=== PATIENT | female | born 1960 | race Caucasian/White ===

== ENCOUNTER → 2022-07-05 | Outpatient (CLI) | payer BC ==
[~2022-07-05] MED LIST: CIPR500T5 PO; CIPR500T78 PO; CPR500T PO; DCS100C PO; ESTR0.5T PO; ESTR1TAB24 PO; ESTROGEN; HYDR-757 PO; METR-145 PO; METR500T PO
--- NOTE | 2022-07-05 16:48 | Diagnostic Imaging Report ---
Indication: Routine screening. Comparison is made with prior mammograms 07/04/2021 and 05/31/2020. 2-D and 3-D bilateral screening mammography was performed with CAD. Both breasts are heterogeneously dense, limiting the sensitivity of mammography. The parenchymal pattern is stable. No mass or malignant-appearing microcalcifications are seen. Axillae are unremarkable. IMPRESSION: BI-RADS Category 1 No mammographic features suspicious for malignancy are identified. ACR BI-RADS Category 1: Negative. Result letter will be mailed to the patient. Note: At least 10% of breast cancer is not imaged by mammography. Dictated by: Dictated on workstation # [id number]
== END ==
LOC: RAD 14:45
PROVIDERS: ATTEND Family Medicine
DX: Z12.31 Encounter for screening mammogram for malignant neoplasm of breast (principal)
CPT/HCPCS: 77063; 77067

== ENCOUNTER 2022-07-31 06:36 | Outpatient (CLI) | payer BC ==
[~2022-07-31] VITALS: Ht 170.2 cm; Wt 71.2 kg
[2022-08-02] MEDS ORDERED: ONDA4TAB11 SL (10:36)
[2022-08-02] MEDS ORDERED: ESTR1TAB24 PO (10:36)
== END 2022-08-02 10:41 | disposition home or self-care (01) ==
LOC: PREOP 06:36
PROVIDERS: ATTEND Surgery
DX: Z01.818 Encounter for other preprocedural examination (principal)

== ENCOUNTER 2022-08-07 11:11 | Day surgery (SDC) | payer BC ==
[~2022-08-07] VITALS: Ht 170.2 cm; Wt 71.2 kg
[~2022-08-07 11:11] MED LIST changes: +ONDA4TAB11 SL
[2022-08-07] MEDS ORDERED: LACTATED RINGERS 1,000 ML IV STA (11:13)
[2022-08-07 11:40] VITALS: BP 114/65
--- NOTE | 2022-08-07 11:49 | Progress Note-Pre Operative ---
Pre-Operative Progress Note Date of Available H&P: Jul 25, 2022 Date H&P Reviewed: Aug 07, 2022 Time H&P Reviewed: 11:49 History & Physical: H&P Reviewed, Patient Examed, No changes noted Pre-Operative Diagnosis: Family history of colon cancer DANYEL KOEHLER DO Aug 07, 2022 11:49
[2022-08-07] MEDS ORDERED: PROPOFOL INJECTION 50 ML IV ONE (12:57)
[2022-08-07] MEDS ORDERED: MIDAZOLAM 2 MG/2 ML (VERSED) VIAL ONE (12:57)
[2022-08-07] MEDS ORDERED: proPOfol 200 MG/20 ML (DIPRIVAN) VIAL IV ONE (12:57)
--- NOTE | 2022-08-07 14:16 | Anesthesia-General Post-Op ---
MAC Patient Condition Mental Status/LOC: Same as Preop Cardiovascular: Satisfactory Nausea/Vomiting: Absent Respiratory: Satisfactory Pain: Controlled Complications: Absent Post Op Complications Complications None Follow Up Care/Instructions Patient Instructions None needed. Anesthesiology Discharge Order Discharge Order Patient is doing well, no complaints, stable vital signs, no apparent adverse anesthesia problems. No complications reported per nursing. ANCELMO MOSLEY CRNA Aug 07, 2022 14:16
--- NOTE | 2022-08-07 14:17 | Discharge Inst-Simple/Standard ---
Discharge Inst-Standard Patient Instructions/Follow Up Plan of Care/Instructions/FU: Follow up colonoscopy in 5 years. Unless change in bowels or any concerns be seen at that time. Activity as Tolerated: Yes Discharge Diet: Regular Diet DANYEL KOEHLER DO Aug 07, 2022 14:17
[2022-08-07 14:20] VITALS: BP 116/55
[2022-08-07 14:25] VITALS: BP 111/56
[2022-08-07 14:38] VITALS: BP 111/56
--- NOTE | 2022-08-07 23:51 | OPERATIVE REPORT ---
DATE OF SERVICE: 08/07/2022 PREOPERATIVE DIAGNOSIS: Family history of colon cancer. POSTOPERATIVE DIAGNOSIS: Normal colon. PROCEDURE: Colonoscopy. SURGEON: Danyel Hicks DO ANESTHESIA: Per ARTIST REPRESENTATIVE. ESTIMATED BLOOD LOSS: None. COMPLICATIONS: None. INDICATIONS: The patient is a 62-year-old female with family history of colon cancer. She had previous colon resection of sigmoid diverticulitis. She understood the risks and benefits of the procedure and wished to proceed. Consent was signed and was placed in chart. DESCRIPTION OF PROCEDURE: The patient was taken to endoscopy suite, placed in left lateral recumbent position. Timeout was performed. Digital rectal exam was performed. No palpable polyps, masses or ulcerations. Scope was inserted in the rectum and advanced all the way to the cecum with minimal difficulty. Prep was adequate. Scope was then slowly retracted back. No polyps, masses or ulcerations in the cecum, ascending, transverse, descending and sigmoid colon. The anastomosis was visualized and no abnormality. Scope once in the rectum was retroflexed noting no other pathology. Scope was returned to normal position, slowly withdrawn until completely removed. The patient tolerated the procedure well without any complications. She was taken to recovery room in stable condition. RECOMMENDATIONS: The patient will need repeat colonoscopy in 5 years. Any issues before that be seen at that time. Job ID: [id number] DocumentID: [id number] Dictated Date: 08/07/2022 14:19:53 [employer] Date: 08/07/2022 23:48:00 Dictated By: DANYEL HICKS DO
== END 2022-08-07 14:55 | disposition home or self-care (01) ==
LOC: ENDO 11:11
PROVIDERS: ATTEND Surgery
DX: Z12.11 Encounter for screening for malignant neoplasm of colon (principal); Z80.0 Family history of malignant neoplasm of digestive organs; Z90.49 Acquired absence of other specified parts of digestive tract; Z87.19 Personal history of other diseases of the digestive system